=== PATIENT | female | born 1950 | race Caucasian/White ===

== ENCOUNTER 2017-01-24 18:27 | Emergency (ER) | payer MEDICARE, OTHER ==
[~2017-01-24] VITALS: Ht 162.6 cm; Wt 141.1 kg
[~2017-01-24 18:27] MED LIST: ASPIRIN81 MG PO; CATAPRES0.2 MG PO; CLARITIN10 MG PO; COREG25 MG PO; FLONASE16 GM NASBOTH; GLUCOPHAGE1000 MG PO; KEFLEX250 MG PO; LANTUS100 UNIT/1 SUBCUT; LASIX20 MG PO; LOVASTATIN40 MG PO; NOVOLOG100 UNIT/2 SUBCUT; PHENERGAN25 M1 PO; PRINIVIL20 MG PO; TYLENOL500 MG PO; VITAMIN D31000 UNI1 PO; ZOFRAN4 MG PO
[2017-01-24] MEDS ORDERED: NEURONTIN300 MG PO (18:56)
[2017-01-24] MEDS ORDERED: TRADJENTA5 MG PO (18:57)
[2017-07-13] MEDS ORDERED: TYLENOL500 MG PO (14:34)
[2017-07-13] MEDS ORDERED: VITAMIN D1000 UNI1 PO (14:35)
[2017-07-13] MEDS ORDERED: CRANBERRY405 MG PO (14:35)
[2017-07-13] MEDS ORDERED: CENTRUM COMPLE1 EACH PO (14:36)
[2017-07-13] MEDS ORDERED: FISH OIL1 GM PO (14:37)
[2017-07-13] MEDS ORDERED: MIRALAX17 GM PO (14:41)
== END 2017-01-24 20:35 | disposition short-term general hospital (02) ==
LOC: ER 18:27
DX: J20.8 Acute bronchitis due to other specified organisms (principal)

== ENCOUNTER → 2017-02-08 | Outpatient (CLI) | payer MEDICARE, OTHER ==
[~2017-02-08] MED LIST changes: +CENTRUM COMPLE1 EACH PO; +CRANBERRY405 MG PO; +FISH OIL1 GM PO; +MIRALAX17 GM PO; +NEURONTIN300 MG PO; +TRADJENTA5 MG PO; +VITAMIN D1000 UNI1 PO
== END | disposition short-term general hospital (02) ==
LOC: CLCARD 09:30
DX: I25.10 Atherosclerotic heart disease of native coronary artery without angina pectoris (principal); N18.4 Chronic kidney disease, stage 4 (severe); R60.0 Localized edema

== ENCOUNTER → 2017-03-04 | Outpatient (CLI) | payer MEDICARE, OTHER | END | disposition short-term general hospital (02) | LOC: CLNEPH 09:45 | DX: E11.22 Type 2 diabetes mellitus with diabetic chronic kidney disease (principal); I12.9 Hypertensive chronic kidney disease with stage 1 through stage 4 chronic kidney disease, or unspecified chronic kidney disease; N18.4 Chronic kidney disease, stage 4 (severe); E87.70 Fluid overload, unspecified; R60.9 Edema, unspecified; E66.9 Obesity, unspecified; I25.10 Atherosclerotic heart disease of native coronary artery without angina pectoris; R80.9 Proteinuria, unspecified ==

== ENCOUNTER → 2017-04-01 | Outpatient (CLI) | payer MEDICARE, OTHER | END | disposition short-term general hospital (02) | LOC: CLNEPH 13:27 | DX: I12.9 Hypertensive chronic kidney disease with stage 1 through stage 4 chronic kidney disease, or unspecified chronic kidney disease (principal); E11.22 Type 2 diabetes mellitus with diabetic chronic kidney disease; N18.4 Chronic kidney disease, stage 4 (severe); D63.1 Anemia in chronic kidney disease; E66.9 Obesity, unspecified; I25.10 Atherosclerotic heart disease of native coronary artery without angina pectoris; R80.9 Proteinuria, unspecified; R60.1 Generalized edema ==

== ENCOUNTER → 2017-04-15 | Outpatient (CLI) | payer MEDICARE, OTHER | END | disposition short-term general hospital (02) | LOC: CLVASC 14:58 | DX: N18.4 Chronic kidney disease, stage 4 (severe) (principal) ==

== ENCOUNTER → 2017-05-03 | Outpatient (CLI) | payer MEDICARE, OTHER | END | disposition short-term general hospital (02) | LOC: CLCARD 03:50 | DX: I25.10 Atherosclerotic heart disease of native coronary artery without angina pectoris (principal); E11.22 Type 2 diabetes mellitus with diabetic chronic kidney disease; N18.4 Chronic kidney disease, stage 4 (severe); I50.32 Chronic diastolic (congestive) heart failure; E66.01 Morbid (severe) obesity due to excess calories; I87.2 Venous insufficiency (chronic) (peripheral); Z79.4 Long term (current) use of insulin ==